=== PATIENT | female | born 1955 | race Caucasian/White ===

== ENCOUNTER → 2017-01-18 | Outpatient (CLI) | payer BC, MEDICARE | LOC: RAD 14:22 | PROVIDERS: ATTEND Internal Medicine Medical Oncology | DX: R07.9 Chest pain, unspecified (principal); R05 Cough | CPT/HCPCS: 71275 ==

== ENCOUNTER → 2017-09-01 | Outpatient (CLI) | payer BC, MEDICARE ==
[2017-09-01 13:26] LABS: HEMATOCRIT 30.6 % (36.0-47.0); HEMOGLOBIN 10.2 g/dL (12.0-15.5); MEAN CORPUSCULAR HEMOGLOBIN 28.8 pg (27.0-33.4); MEAN CORPUSCULAR HGB CONC 33.4 g/dL (32.0-36.0); MEAN CORPUSCULAR VOLUME 86 fl (80-97); RED BLOOD COUNT 3.55 10^6/uL (3.72-5.28); RED CELL DISTRIBUTION WIDTH 13.9 % (11.5-14.0)
[2017-09-01 13:47] LABS: ALANINE AMINOTRANSFERASE 49 U/L (9-52); ALBUMIN 4.1 g/dL (3.5-5.0); ALKALINE PHOSPHATASE 71 U/L (38-126); ANION GAP 13 (5-19); ASPARTATE AMINO TRANSFERASE 52 U/L (14-36); BILIRUBIN,DIRECT 0.4 mg/dL (0.0-0.4); BILIRUBIN,TOTAL 0.4 mg/dL (0.2-1.3); BLOOD UREA NITROGEN 28 mg/dL (7-20); CALCIUM 9.1 mg/dL (8.4-10.2); CARBON DIOXIDE 36 mmol/L (22-30); CHLORIDE 93 mmol/L (98-107); CREATININE RESULT 1.39 mg/dL (0.52-1.25); Direct HDL 52 mg/dL (>40); GLUCOSE 85 mg/dL (75-110); POTASSIUM 4.2 mmol/L (3.6-5.0); SODIUM 141.7 mmol/L (137-145); TOTAL PROTEIN 6.8 g/dL (6.3-8.2); TRIGLYCERIDES 53 mg/dL (<150)
[2017-09-01 13:58] LABS: DIRECT LDL 43 mg/dL (<100)
[2017-09-01 14:03] LABS: ERYTHROCYTE SEDIMENTATION RATE 53 mm/hr (0-30)
== END ==
LOC: OD 12:44
PROVIDERS: ATTEND Nurse Practitioner
DX: E78.2 Mixed hyperlipidemia (principal); I10 Essential (primary) hypertension; I25.10 Atherosclerotic heart disease of native coronary artery without angina pectoris; R06.89 Other abnormalities of breathing; M79.89 Other specified soft tissue disorders; I65.21 Occlusion and stenosis of right carotid artery; I77.1 Stricture of artery; L03.116 Cellulitis of left lower limb; L03.115 Cellulitis of right lower limb
CPT/HCPCS: 36415; 80053; 80061; 85027; 85379; 85652

== ENCOUNTER 2017-09-14 09:07 | Emergency (ER) | payer BC, MEDICARE ==
--- NOTE | 2017-09-14 10:24 | RADIOLOGY REPORT (SQ) ---
EXAM DESCRIPTION: ANKLE LEFT COMPLETE COMPLETED DATE/TIME: 09/14/2017 10:00 am REASON FOR STUDY: lat ankle pain after fall COMPARISON: None. NUMBER OF VIEWS: Three views. TECHNIQUE: AP, lateral, and oblique radiographic images acquired of the left ankle. LIMITATIONS: None. FINDINGS: MINERALIZATION: Normal. BONES: An oblique lucency is identified in the distal fibula suspicious for a nondisplaced fracture l ine. No other evidence for fracture is seen. JOINTS: No effusions. SOFT TISSUES: Soft tissue swelling is identified. OTHER: No other significant finding. IMPRESSION: Oblique lucency in the distal fibula suspicious for nondisplaced fracture line. No othe r evidence for fracture is seen. TECHNICAL DOCUMENTATION: JOB ID: [id number] [employer]- All Rights Reserved
--- NOTE | 2017-09-14 10:36 | ER Document Report ---
HPI - HPI Patient complains to provider of: Left ankle injury Onset: This morning Onset/Duration: Sudden Quality of pain: Sharp Pain Level: 4 Context: Patient states that she was getting up and misstepped injuring her left ankle and then hitting her head on the closet. Patient denies any loss of consciousness. Patient complains of continued left ankle tenderness. Associated Symptoms: Other - Left ankle injury. denies: Headache, Nausea, Vomiting Exacerbated by: Standing, Movement, Walking Relieved by: Denies Similar symptoms previously: No Recently seen / treated by doctor: No - ROS ROS below otherwise negative: Yes Systems Reviewed and Negative: Yes All other systems reviewed and negative - NEURO Neurology: DENIES: Weakness - GASTROINTESTINAL Gastrointestinal: DENIES: Nausea - MUSCULOSKELETAL Musculoskeletal: REPORTS: Extremity pain, Swelling - DERM Skin Problems: None Past Medical History - General Information source: Patient - Social History Smoking Status: Former Smoker Chew tobacco use (# tins/day): No Smoking Education Provided: Yes Frequency of alcohol use: None Drug Abuse: None Occupation: None Lives with: Family Family History: None Patient has suicidal ideation: No Patient has homicidal ideation: No - Past Medical History Cardiac Medical History: Reports: Hx Hypertension Denies: Hx Coronary Artery Disease, Hx Heart Attack Pulmonary Medical History: Denies: Hx Asthma, Hx Bronchitis, Hx COPD, Hx Pneumonia Neurological Medical History: Denies: Hx Cerebrovascular Accident, Hx Seizures Renal/ Medical History: Denies: Hx Peritoneal Dialysis Musculoskeltal Medical History: Reports Hx Arthritis - OSTEOARTHRITIS Past Surgical History: Reports: Hx Cardiac Catheterization - stents x 3, Hx Coronary Stent - x5, Hx Hysterectomy, Hx Orthopedic Surgery - back. Denies: Hx Pacemaker - Immunizations Hx Diphtheria, Pertussis, Tetanus Vaccination: Yes Vertical Provider Document - CONSTITUTIONAL Agree With Documented VS: Yes Exam Limitations: No Limitations General Appearance: WD/WN, No Apparent Distress - INFECTION CONTROL TRAVEL OUTSIDE OF THE [place] IN LAST 30 DAYS: No - HEENT HEENT: Atraumatic, Normocephalic - NECK Neck: Normal Inspection - RESPIRATORY Respiratory: Breath Sounds Normal, No Respiratory Distress O2 Sat by Pulse Oximetry: 100 - BACK Back: Normal Inspection - MUSCULOSKELETAL/EXTREMETIES Musculoskeletal/Extremeties: MAEW, Tender - Left ankle tenderness, left distal left lower extremity tenderness, 1+ edema to left ankle, Edema. negative: Eccymosis - NEURO Level of Consciousness: Awake, Alert, Appropriate Motor/Sensory: No Motor Deficit - DERM Integumentary: Warm, Dry, No Rash Course - Re-evaluation Re-evalutation: 09/14/17 10:36 Patient is on pain medication at home thus the decision was made not to give any additional on top of what she has already had. 09/14/17 10:37 - Vital Signs Vital signs: Temp Pulse Resp BP Pulse Ox 99.2 F 69 19 105/68 100 09/14/17 09:24 09/14/17 09:24 09/14/17 09:24 09/14/17 09:24 09/14/17 09:24 - Diagnostic Test Radiology reviewed: Image reviewed, Reports reviewed Procedures - Immobilization Left Ankle Pre-Proc Neuro Vasc Exam: Normal Immobilizer type: Posterior ankle Performed by: PCT Post-Proc Neuro Vasc Exam: Normal Alignment checked and good: Yes Discharge - Discharge Clinical Impression: Fibula fracture Qualifiers: Encounter type: initial encounter Fibula location: distal Fracture type: closed Fracture morphology: unspecified fracture morphology Laterality: left Qualified Code(s): S82.832A - Other fracture of upper and lower end of left fibula, initial encounter for closed fracture Condition: Stable Disposition: HOME, SELF-CARE Instructions: Use of Crutches ([facility]), Fracture of Distal Fibula ([facility]), Ice & Elevation ([facility]), Splint Precautions ([facility]) Additional Instructions: Return immediately for any new or worsening symptoms Followup with your primary care provider, call tomorrow to make a followup appointment Take your pain medication that you have at home as prescribed Follow-up with orthopedic doctor for further evaluation, call today for an appointment Forms: Smoking Cessation Education Referrals: [facility] ([facility] [Provider Group] - Follow up as needed
[2017-09-14] MEDS ORDERED: ACETAMINOPHEN 325 MG TABLET PO ONE (10:37)
[2017-09-14 10:58] VITALS: BP 92/66
== END 2017-09-14 10:58 | disposition home or self-care (01) ==
LOC: ER 09:07
PROC: 2W3RX1Z Immobilization of Left Lower Leg using Splint (ICD-10-PCS; principal; 2017-09-14)
DX: S82.832A Other fracture of upper and lower end of left fibula, initial encounter for closed fracture (principal); M25.572 Pain in left ankle and joints of left foot; W19.XXXA Unspecified fall, initial encounter; Z87.891 Personal history of nicotine dependence
CPT/HCPCS: 99283

== ENCOUNTER 2018-01-03 09:06 | Day surgery (SDC) | payer BC, MEDICARE ==
[2018-01-03 10:27] LABS: INTERNATIONAL RATION (INR) 0.98; PROTHROMBIN TIME 13.7 SEC (11.4-15.4)
[2018-01-03 10:28] LABS: HEMATOCRIT 34.5 % (36.0-47.0); HEMOGLOBIN 11.6 g/dL (12.0-15.5); MEAN CORPUSCULAR HEMOGLOBIN 28.4 pg (27.0-33.4); MEAN CORPUSCULAR HGB CONC 33.6 g/dL (32.0-36.0); MEAN CORPUSCULAR VOLUME 85 fl (80-97); PARTIAL THROMBOPLASTIN TIME 30.8 SEC (23.5-35.8); PLATELET COUNT 385 10^3/uL (150-450); RED BLOOD COUNT 4.08 10^6/uL (3.72-5.28); RED CELL DISTRIBUTION WIDTH 13.3 % (11.5-14.0); WHITE BLOOD COUNT 8.3 10^3/uL (4.0-10.5)
[2018-01-03 10:40] LABS: BLOOD UREA NITROGEN 21 mg/dL (7-20)
[2018-01-03] MEDS ORDERED: MIDAZOLAM 2 MG/2 ML INJ ONE (11:02)
[2018-01-03] MEDS ORDERED: FENTANYL CITRATE INJ/PF 100 MCG/2 ML AMPUL ONE ×2 (11:03→11:43)
[2018-01-03] MEDS ORDERED: LIDOCAINE 1% INJ-PF (10 MG/ML) 30 ML SDV ONE (11:19)
[2018-01-03 13:58] VITALS: BP 108/67
--- NOTE | 2018-01-03 14:55 | RADIOLOGY REPORT (SQ) ---
EXAM DESCRIPTION: CT BIOPSY BONE MARROW, NEEDLE; CT NEEDLE PLACEMENT COMPLETED DATE/TIME: 01/03/2018 11:49 am REASON FOR STUDY: IRON DEFICIENCY E61.1 IRON DEFICIENCY N18.3 CHRONIC KIDNEY DISEASE, STAGE 3 (MOD ERATE) N28.9 DISORDER OF KIDNEY AND URETER, UNSPECIFIED COMPARISON: CT abdomen pelvis 07/18/2016 TECHNIQUE: CT guided biopsy of the right iliac crest bone marrow performed with conscious sedation. CT Fluoroscopy Time: 2.[address] scanners at this facility use dose modulation, iterative reconstruction, and/or weight based d osing when appropriate to reduce radiation dose to as low as reasonably achievable (ALARA). [facility]: Dose Right [facility]: CareDose [facility]: Dose Right [facility]: Teradose 4D [facility]: [employer] RADIATION DOSE: 34mGy. FINDINGS: The procedure was discussed with the patient and the patient agreed to the procedure. Prio r to the procedure, a time out was performed to verify the patient's identity and planned procedure. IV sedation was administered and physician direction by the registered nurse using 2 milligrams of Ve rsed and 125 micrograms of fentanyl. Physiologic monitoring was provided before, during, and after se dation. The total sedation time was 37 minutes. Documentation face to face time, the performing proceduralist, spent monitoring the patient: [address] scanning was performed to localize the percutaneous site for the biopsy approach. After sterile skin prep and local lidocaine for skin and deep tissue anesthesia, an 11 gauge bone mar row biopsy needle was used to access the posterior right iliac crest. Aspirate and core were obtaine d, submitted to Dr. Wilson's bilingual office assistant for processing. There were no immediate complications. Pathology is pending at the time of dictation. IMPRESSION: CT GUIDED BIOPSY OF THE RIGHT POSTERIOR ILIAC CREST BONE MARROW PERFORMED WITHOUT IMMEDI ATE COMPLICATION. PATHOLOGY PENDING. COMMENT: Quality ID 145: Final reports for procedures using fluoroscopy that document radiation exp osure indices, or exposure time and number of fluorographic images (if radiation exposure indices are not available) Patient medication list reviewed: Yes- Quality ID# [id number]:Eligible professional attests to documenting i n the medical record they obtained, updated, or reviewed the patient's current medications.. TECHNICAL DOCUMENTATION: JOB ID: [id number] Quality ID# [id number]: Final reports with documentation of one or more dose reduction techniques (e.g., Aut omated exposure control, adjustment of the mA and/or kV according to patient size, use of iterative r econstruction technique) 2010 [employer] ([employer]) [facility]- All Rights Reserved Reading location - IP/workstation name: [email or web address]
--- NOTE | 2018-01-03 14:55 | RADIOLOGY REPORT (SQ) ---
EXAM DESCRIPTION: CT BIOPSY BONE MARROW, NEEDLE; CT NEEDLE PLACEMENT COMPLETED DATE/TIME: 01/03/2018 11:49 am REASON FOR STUDY: IRON DEFICIENCY E61.1 IRON DEFICIENCY N18.3 CHRONIC KIDNEY DISEASE, STAGE 3 (MOD ERATE) N28.9 DISORDER OF KIDNEY AND URETER, UNSPECIFIED COMPARISON: CT abdomen pelvis 07/18/2016 TECHNIQUE: CT guided biopsy of the right iliac crest bone marrow performed with conscious sedation. CT Fluoroscopy Time: 2.[address] scanners at this facility use dose modulation, iterative reconstruction, and/or weight based d osing when appropriate to reduce radiation dose to as low as reasonably achievable (ALARA). [facility]: Dose Right [facility]: CareDose [facility]: Dose Right [facility]: Teradose 4D [facility]: [employer] RADIATION DOSE: 34mGy. FINDINGS: The procedure was discussed with the patient and the patient agreed to the procedure. Prio r to the procedure, a time out was performed to verify the patient's identity and planned procedure. IV sedation was administered and physician direction by the registered nurse using 2 milligrams of Ve rsed and 125 micrograms of fentanyl. Physiologic monitoring was provided before, during, and after se dation. The total sedation time was 37 minutes. Documentation face to face time, the performing proceduralist, spent monitoring the patient: [address] scanning was performed to localize the percutaneous site for the biopsy approach. After sterile skin prep and local lidocaine for skin and deep tissue anesthesia, an 11 gauge bone mar row biopsy needle was used to access the posterior right iliac crest. Aspirate and core were obtaine d, submitted to Dr. Wilson's staffing assistant for processing. There were no immediate complications. Pathology is pending at the time of dictation. IMPRESSION: CT GUIDED BIOPSY OF THE RIGHT POSTERIOR ILIAC CREST BONE MARROW PERFORMED WITHOUT IMMEDI ATE COMPLICATION. PATHOLOGY PENDING. COMMENT: Quality ID 145: Final reports for procedures using fluoroscopy that document radiation exp osure indices, or exposure time and number of fluorographic images (if radiation exposure indices are not available) Patient medication list reviewed: Yes- Quality ID# 130:Eligible professional attests to documenting i n the medical record they obtained, updated, or reviewed the patient's current medications.. TECHNICAL DOCUMENTATION: JOB ID: [id number] Quality ID# 436: Final reports with documentation of one or more dose reduction techniques (e.g., Aut omated exposure control, adjustment of the mA and/or kV according to patient size, use of iterative r econstruction technique) 2010 [employer]- All Rights Reserved Reading location - IP/workstation name: [email or web address]
== END 2018-01-03 13:58 | disposition home or self-care (01) ==
LOC: RAD 09:06
PROVIDERS: ATTEND Internal Medicine Medical Oncology
DX: N18.3 Chronic kidney disease, stage 3 (moderate) (principal); E61.1 Iron deficiency; N28.9 Disorder of kidney and ureter, unspecified; Z79.899 Other long term (current) drug therapy
CPT/HCPCS: 36415; 82962; 84520; 82565; 85027; 85610; 85730; 38221; 77012; J2250; J3010; J3490

== ENCOUNTER 2018-12-18 11:22 | Emergency (ER) | payer BC, MEDICARE ==
[2018-12-18 11:34] VITALS: BP 149/80
[2018-12-18] MEDS ORDERED: DEXAMETHASONE SOD PHOS INJ 10 MG/1 ML VIAL IM ONE (11:37)
[2018-12-18] MEDS ORDERED: KETOROLAC TROMETHAMINE INJ/PF 30 MG/1 ML SDV IM ONE (11:37)
--- NOTE | 2018-12-18 11:42 | ER Document Report ---
HPI - HPI Time Seen by Provider: 12/18/18 11:37 Pain Level: 4 Notes: Patient is a 63-year-old female with a history of hypertension and previous back surgery who presents to the emergency department primarily complaining of left lateral ankle pain which she has fractured before. Patient states that on occasion her ankle will roll in some of the shoes that she wears, but does not recall a specific injury. This pain has been ongoing for the last 2 weeks and patient states that she is also had a flareup of her radiculitis down the left lateral thigh into the lower leg over the last couple weeks as well. Patient states that she was also told that she has arthritis to her left hip, but is primarily here for her ankle. Patient states that she would like a steroid injection as well as Toradol as that works well for her. No other concerns or complaints. No history of diabetes. Denies any headache, fever, neck pain, URI, sore throat, chest pain, palpitations, syncope, cough, shortness of breath, wheeze, dyspnea, abdominal pain, nausea/vomiting/diarrhea, urinary retention, dysuria, hematuria, back pain, loss of control of bowel or bladder, numbness, saddle anesthesia, muscle paralysis/weakness, or rash. - ROS Systems Reviewed and Negative: Yes All other systems reviewed and negative Past Medical History - Social History Smoking Status: Former Smoker Family History: None - Past Medical History Cardiac Medical History: Reports: Hx Coronary Artery Disease, Hx Heart Attack - 3 CARDIAC STENTS (2012), Hx Hypertension - ON MEDICATIONS Pulmonary Medical History: Reports: Hx COPD Denies: Hx Asthma, Hx Bronchitis, Hx Pneumonia Neurological Medical History: Denies: Hx Cerebrovascular Accident, Hx Seizures Renal/ Medical History: Denies: Hx Peritoneal Dialysis Musculoskeletal Medical History: Reports Hx Arthritis - OSTEOARTHRITIS Past Surgical History: Reports: Hx Cardiac Catheterization - stents x 3, Hx Coronary Stent - x5, Hx Hysterectomy, Hx Orthopedic Surgery - back. Denies: Hx Pacemaker - Immunizations Hx Diphtheria, Pertussis, Tetanus Vaccination: Yes Hx Pneumococcal Vaccination: 10/16/17 Vertical Provider Document - CONSTITUTIONAL Agree With Documented VS: Yes Notes: PHYSICAL EXAMINATION: GENERAL: Well-appearing, well-nourished and in no acute distress. LUNGS: Breath sounds clear to auscultation bilaterally and equal. No wheezes rales or rhonchi. HEART: Regular rate and rhythm without murmurs, rubs, gallops. ABDOMEN: Soft, nontender, nondistended abdomen. No guarding, no rebound. No masses appreciated. Normal bowel sounds present. No CVA tenderness bilaterally. No pulsatile mass Musculoskeletal: Lt foot/ankle: No obvious ecchymosis, swelling, erythema, warmth, deformity. FROM to passive/active. Strength 5+/5. N/V intact distal. + tenderness to the lateral malleolus. No bony tenderness of the foot. Achilles intact. LE's otherwise b/l: FROM to passive/active. Strength 5+/5. No deficits noted. No bony tenderness of extremities. Frantz negative bilateral Back: FROM to passive/active. Strength 5+/5. No vertebral point tenderness, stepoffs, or deformities. No other bony tenderness, erythema, swelling, or ecchymosis. SLR negative b/l. No SI jt tenderness. No foot drop Extremities: No cyanosis, clubbing, or edema b/l. Peripheral pulses 2+. Capillary refill less than 2 seconds. NEUROLOGICAL: Normal speech, limping gait. Normal sensory, motor exams. Reflexes 2+ b/l. PSYCH: Normal mood, normal affect. SKIN: Warm, Dry, normal turgor, no rashes or lesions noted. - INFECTION CONTROL TRAVEL OUTSIDE OF THE [place] IN LAST 30 DAYS: No Course - Re-evaluation Re-evalutation: 12/18/18 12:30 Patient is an afebrile, well-hydrated, 54-year-old female who presents to the ED with left ankle pain and radiculitis which are both acute on chronic. Vitals are acceptable without any significant tachycardia, tachypnea, or hypoxia. PE is otherwise unremarkable for any neurovascular compromise, obvious tendon/ligament rupture, obvious fracture/dislocation, septic joint. X-ray was unremarkable for any acute pathology. Ankle stirrup provided today. Patient declined any Tylenol or ice. Patient requested Toradol and Decadron which are provided today. Patient is not a diabetic. Patient is nontoxic-appearing. Patient is able to ambulate and weight-bear although she is limping. No other labs or imaging warranted at this time based on H&P. Conservative measures otherwise for symptoms. Recheck with your PCM in 3-5 days. Consider consult orthopedics. Return to the ED with any worsening/concerning symptoms otherwise as reviewed in discharge. Patient is in agreement. - Vital Signs Vital signs: Temp Pulse Resp BP Pulse Ox 98.3 F 70 14 149/80 H 99 12/18/18 11:33 12/18/18 11:33 12/18/18 11:33 12/18/18 11:33 12/18/18 11:33 Discharge - Discharge Clinical Impression: Radiculitis Left ankle pain Qualifiers: Chronicity: acute Qualified Code(s): M25.572 - Pain in left ankle and joints of left foot Condition: Stable Disposition: HOME, SELF-CARE Additional Instructions: Rest, Ice, Compression, Elevation Use splint as directed Tylenol/ibuprofen as needed Light stretches daily Strength exercises as able Moist heat and massage may help F/u with your PCP in 3-5 days for a recheck Consider consult(s) with Orthopedics/physical therapy for ongoing/worsening symptoms Return to the ED with any worsening symptoms and/or development of fever, headache, chest pain, palpitations, syncope, shortness of breath, trouble breathing, abdominal pain, n/v/d, blood in stool/urine, loss of control of bowel/bladder, urinary retention, muscle weakness/paralysis, saddle anesthesia, numbness/tingling, or other worsening symptoms that are concerning to you. Forms: Elevated Blood Pressure Referrals: CADY JIMENEZ FNP [Primary Care Provider] - Follow up as needed [facility] [Provider Group] - Follow up as needed
--- NOTE | 2018-12-18 12:22 | RADIOLOGY REPORT (SQ) ---
EXAM DESCRIPTION: ANKLE LEFT COMPLETE COMPLETED DATE/TIME: 12/18/2018 11:58 am REASON FOR STUDY: left lateral ankle pain COMPARISON: None. NUMBER OF VIEWS: Three views. TECHNIQUE: AP, lateral, and oblique radiographic images acquired of the left ankle. LIMITATIONS: None. FINDINGS: MINERALIZATION: Normal. BONES: No acute fracture or dislocation. No worrisome bone lesions. JOINTS: Small osteophyte projects off of the anterior tibial talar joint. SOFT TISSUES: No soft tissue swelling. No foreign body. OTHER: No other significant finding. IMPRESSION: 1. Mild degenerative changes anterior tibiotalar joint. 2. No acute osseous findings. TECHNICAL DOCUMENTATION: JOB ID: [id number] [employer]- All Rights Reserved Reading location - IP/workstation name: [email or web address]
== END 2018-12-18 12:38 | disposition home or self-care (01) ==
LOC: ER 11:22
DX: M25.572 Pain in left ankle and joints of left foot (principal); M54.10 Radiculopathy, site unspecified; G89.29 Other chronic pain; I10 Essential (primary) hypertension; J44.9 Chronic obstructive pulmonary disease, unspecified; Z87.891 Personal history of nicotine dependence; I25.10 Atherosclerotic heart disease of native coronary artery without angina pectoris; Z95.5 Presence of coronary angioplasty implant and graft
CPT/HCPCS: 99283; 96372; 73610; L1902; J1885; J1100

== ENCOUNTER → 2019-01-14 | Outpatient (CLI) | payer BC, MEDICARE ==
--- NOTE | 2019-01-14 12:53 | RADIOLOGY REPORT (SQ) ---
EXAM DESCRIPTION: L SPINE 2 VIEWS COMPLETED DATE/TIME: 01/14/2019 12:22 pm REASON FOR STUDY: M47.26 OTHER SPONDYLOSIS WITH RADICULOPATHY, LUMBAR REGION M47.26 OTHER SPONDYLOS IS WITH RADICULOPATHY, LUMBAR REGION COMPARISON: None. NUMBER OF VIEWS: Three views. TECHNIQUE: AP, lateral and sacral radiographic images acquired of the lumbar spine. LIMITATIONS: None. FINDINGS: MINERALIZATION: Normal. SEGMENTATION: Normal. No transitional anatomy. ALIGNMENT: Slight scoliosis with concavity toward the right. This could be positional. VERTEBRAE: Maintained height. No fracture or worrisome bone lesion. DISCS: There is disc space narrowing throughout the lumbar spine most marked from L3-L4 through L5-S1 . POSTERIOR ELEMENTS: Pedicles and facets are intact. No pars defect or posterior arch defects. HARDWARE: There are postsurgical changes at L4-L5 with anterior fusion. PARASPINAL SOFT TISSUES: Normal. PELVIS: Intact as visualized. No fractures or worrisome bone lesions. SI joints intact. OTHER: No other significant finding. IMPRESSION: Postsurgical and degenerative changes. No acute findings. TECHNICAL DOCUMENTATION: JOB ID: [id number] [employer]- All Rights Reserved Reading location - IP/workstation name: [email or web address]
--- NOTE | 2019-01-14 12:54 | RADIOLOGY REPORT (SQ) ---
EXAM DESCRIPTION: L SPINE FLEX/EXT ONLY COMPLETED DATE/TIME: 01/14/2019 12:22 pm REASON FOR STUDY: SPONDYLOSIS M47.26 OTHER SPONDYLOSIS WITH RADICULOPATHY, LUMBAR REGION COMPARISON: None. NUMBER OF VIEWS: Two view. TECHNIQUE: Flexion and extension lateral views of lumbar spine were submitted. LIMITATIONS: None. FINDINGS: MINERALIZATION: Normal. SEGMENTATION: Normal. No transitional anatomy. ALIGNMENT: Normal. FLEXION/EXTENSION: No instability. VERTEBRAE: Maintained height. No fracture or worrisome bone lesion. DISCS: Multilevel disc space narrowing. POSTERIOR ELEMENTS: Pedicles and facets are intact. No pars defect or posterior arch defects. HARDWARE: Postsurgical changes at L4-L5 with anterior fusion. OTHER: No other significant finding. IMPRESSION: Multilevel spondylosis. Postsurgical changes at L4-L5. No instability. TECHNICAL DOCUMENTATION: JOB ID: [id number]- All Rights Reserved Reading location - IP/workstation name: [email or web address]
== END ==
LOC: RAD 14:02
PROVIDERS: ATTEND Neurological Surgery
DX: M47.26 Other spondylosis with radiculopathy, lumbar region (principal); M48.062 Spinal stenosis, lumbar region with neurogenic claudication
CPT/HCPCS: 72100; 72120

== ENCOUNTER 2020-06-19 09:51 | Day surgery (SDC) | payer MEDICARE ==
[~2020-06-19 09:51] MED LIST: LACTATED RINGERS 1000 ML IV PRN; LIDOCAINE 0.5% INJ-PF (5 MG/ML) 50 ML SDV SUBCUT PRN
[2020-06-19 11:02] LABS: ABSOLUTE BASOPHILS # (AUTO) 0.1 10^3/uL (0.0-0.2); ABSOLUTE EOSINOPHILS # (AUTO) 0.3 10^3/uL (0.0-0.6); ABSOLUTE LYMPHOCYTES (AUTO) 1.4 10^3/uL (0.5-4.7); ABSOLUTE MONOCYTES (AUTO) 0.5 10^3/uL (0.1-1.4); ABSOLUTE NEUT (AUTO) 3.8 10^3/uL (1.7-8.2); BASOPHILS % (AUTO) 1.2 % (0-2); EOSINOPHILS % (AUTO) 4.9 % (0-6); HEMATOCRIT 34.5 % (36.0-47.0); HEMOGLOBIN 11.6 g/dL (12.0-15.5); LYMPHOCYTES % (AUTO) 23.1 % (13-45); MEAN CORPUSCULAR HEMOGLOBIN 28.9 pg (27.0-33.4); MEAN CORPUSCULAR HGB CONC 33.8 g/dL (32.0-36.0); MEAN CORPUSCULAR VOLUME 86 fl (80-97); MONOCYTES % (AUTO) 8.4 % (3-13); PLATELET COUNT 274 10^3/uL (150-450); RED BLOOD COUNT 4.03 10^6/uL (3.72-5.28); RED CELL DISTRIBUTION WIDTH 13.8 % (11.5-14.0); SEGMENTED NEUTROPHILS % (AUTO) 62.4 % (42-78); TOTAL CELLS COUNTED % (AUTO) 100 %
[2020-06-19 11:23] LABS: ALBUMIN 4.5 g/dL (3.5-5.0); ALKALINE PHOSPHATASE 55 U/L (38-126); ASPARTATE AMINO TRANSFERASE 27 U/L (14-36); BILIRUBIN,DIRECT 0.4 mg/dL (0.0-0.4); BILIRUBIN,TOTAL 0.6 mg/dL (0.2-1.3); TOTAL PROTEIN 7.2 g/dL (6.3-8.2)
[2020-06-19] MEDS ORDERED: EPINEPHRINE INJ 1 MG/10 ML DISP.SYRIN ONE (14:13)
[2020-06-19] MEDS ORDERED: MIDAZOLAM 2 MG/2 ML INJ ONE (14:27)
[2020-06-19] MEDS ORDERED: ONDANSETRON HCL INJ/PF 4 MG/2 ML SDV ONE (14:27)
[2020-06-19] MEDS ORDERED: PROPOFOL INJ 200 MG/20 ML VIAL IV ONE (14:27)
[2020-06-19] MEDS ORDERED: FENTANYL CITRATE INJ/PF 100 MCG/2 ML AMPUL ONE ×2 (14:27→15:43)
[2020-06-19] MEDS ORDERED: LIDOCAINE 2% INJ-PF (20 MG/ML) 10 ML AMPUL ONE (14:27)
[2020-06-19] MEDS ORDERED: DIPHENHYDRAMINE HCL 50 MG/ML VIAL IV PRN (15:20)
[2020-06-19] MEDS ORDERED: ONDANSETRON HCL INJ/PF 4 MG/2 ML SDV IV PRN (15:20)
[2020-06-19] MEDS ORDERED: FENTANYL CITRATE INJ/PF 100 MCG/2 ML AMPUL IV PRN ×3 (15:20)
[2020-06-19] MEDS ORDERED: MEPERIDINE HCL/PF INJ 25 MG/1 ML DISP.SYRIN IV PRN (15:20)
[2020-06-19] MEDS ORDERED: PROMETHAZINE HCL INJ 25 MG/1 ML VIAL IV PRN ×2 (15:20)
--- NOTE | 2020-06-19 15:30 | Operative Report ---
Operative Report DATE OF SURGERY: 06/19/20 Operative Report: Pre-op diagnosis: Recurrent abdominal pain and choledocholithiasis noted on endoscopic ultrasound Post-op diagnosis: Common bile duct sludge Surgery: ERCP with sphincterotomy and balloon sludge extraction Medications: As per anesthesia Tissue removed: None Procedure: After informed consent obtained from patient, patient was placed under general anesthesia. The ERCP endoscope was then inserted into the esophagus blindly and advanced into the stomach. The duodenum was entered and the ampulla was identified. Using the triple-lumen sphincterotomy catheter the common bile duct was freely cannulated. A cholangiogram was obtained . A good sized sphincterotomy was then performed using the endocut mode. The catheter was removed over the guidewire before a 9-12 mm balloon catheter was inserted. The balloon was inflated to 12 mm in the proximal common bile duct and pulled down the duct. The duct was swept two more times. A balloon occlusion cholangiogram was normal. Patient tolerated procedure well. Findings Common bile duct: Small amount of sludge was extracted Intrahepatic ducts: Normal Pancreatic duct: Not cannulated Plan: Follow-up as outpatient OPERATION: .
--- NOTE | 2020-06-19 18:21 | RADIOLOGY REPORT (SQ) ---
EXAM DESCRIPTION: ENDO CATH BILI/PANCREATIC IMAGES COMPLETED DATE/TIME: 06/19/2020 4:17 pm REASON FOR STUDY: ERCP K80.30 CALCULUS OF BILE DUCT W CHOLANGITIS, UNSP, W/O OBSTRU Z79.01 LONG TE RM (CURRENT) USE OF ANTICOAGULANTS COMPARISON: None. FLUOROSCOPY TIME: 2.2 minutes. 17 images saved to PACS. TECHNIQUE: Intra-operative images acquired during surgical procedure to evaluate progress. NUMBER OF IMAGES: 17 images. LIMITATIONS: None. FINDINGS: Images acquired during ERCP. IMPRESSION: IMAGE(S) OBTAINED DURING PROCEDURE. COMMENT: Quality ID 145: Final reports for procedures using fluoroscopy that document radiation exp osure indices, or exposure time and number of fluorographic images (if radiation exposure indices are not available) Please consult full operative report of the attending physician for description of the procedure. TECHNICAL DOCUMENTATION: JOB ID: [id number] 2010 [employer]- All Rights Reserved Reading location - IP/workstation name: [email or web address]
[2020-06-19 18:51] VITALS: BP 134/64
== END 2020-06-19 17:22 | disposition home or self-care (01) ==
LOC: OROUT 09:51
PROVIDERS: ATTEND Internal Medicine Gastroenterology
DX: K83.8 Other specified diseases of biliary tract (principal); R94.5 Abnormal results of liver function studies; R10.9 Unspecified abdominal pain; E03.9 Hypothyroidism, unspecified; K76.0 Fatty (change of) liver, not elsewhere classified; I12.9 Hypertensive chronic kidney disease with stage 1 through stage 4 chronic kidney disease, or unspecified chronic kidney disease; N18.9 Chronic kidney disease, unspecified; K21.9 Gastro-esophageal reflux disease without esophagitis; E78.00 Pure hypercholesterolemia, unspecified; J44.9 Chronic obstructive pulmonary disease, unspecified; I73.9 Peripheral vascular disease, unspecified; I25.2 Old myocardial infarction; Z79.899 Other long term (current) drug therapy; Z88.8 Allergy status to other drugs, medicaments and biological substances; Z03.818 Encounter for observation for suspected exposure to other biological agents ruled out
CPT/HCPCS: 43277; 43262; 36415; 83690; 85025; 80076; 74330; 00732; Q9967; U0003; J2250; J3010; J2405; J2704; J3490; C9803; 732; 87635; J0171

== ENCOUNTER → 2020-08-21 | Outpatient (CLI) | payer MEDICARE ==
--- NOTE | 2020-08-21 10:24 | RADIOLOGY REPORT (SQ) ---
EXAM DESCRIPTION: NM HIDA SCAN IMAGES COMPLETED DATE/TIME: 08/21/2020 9:13 am REASON FOR STUDY: R11.2 NAUSEA WITH VOMITING, UNSPECIFIED R11.2 NAUSEA WITH VOMITING, UNSPECIFIED COMPARISON: None. RADIONUCLIDE AND DOSE: DOSAGE RADIONUCLIDE: 5.36 millicuries Tc99m Mebrofenin. DOSAGE MORPHINE: Not required. The route of agent administration: Intravenous TECHNIQUE: Serial imaging right upper quadrant up to 60 minutes following injection of radionuclide. Patient imaged AP and Right Lateral. LIMITATIONS: None. FINDINGS: LIVER: Normal visualization without areas of photopenia. INTRA-HEPATIC BILE DUCTS: Temporal visualization normal. No dilatation. COMMON BILE DUCT: Normal without dilatation or delayed visualization. GALLBLADDER: Normal visualization. OTHER: No other significant finding. IMPRESSION: NORMAL STUDY WITHOUT CYSTIC OR COMMON DUCT OBSTRUCTION. TECHNICAL DOCUMENTATION: JOB ID: [id number] 2010 [employer]- All Rights Reserved Reading location - IP/workstation name: [email or web address]
== END ==
LOC: RAD 07:27
PROVIDERS: ATTEND Internal Medicine Gastroenterology
DX: R11.2 Nausea with vomiting, unspecified (principal)
CPT/HCPCS: 78226; A9537; Q9969

== ENCOUNTER → 2020-09-09 | Outpatient (CLI) | payer MEDICARE ==
--- NOTE | 2020-09-09 12:53 | RADIOLOGY REPORT (SQ) ---
EXAM DESCRIPTION: NM GASTRIC EMPTYING STUDY IMAGES COMPLETED DATE/TIME: 09/09/2020 12:30 pm REASON FOR STUDY: (R11.2)NAUSEA WITH VOMITING, UNSPECIFIED R11.2 NAUSEA WITH VOMITING, UNSPECIFIED COMPARISON: None. RADIONUCLIDE AND DOSE: 2.16 millicuries Tc-99m Sulfur Colloid. Egg salad sandwich The route of agent administration: Oral. TECHNIQUE: 1 minute serial static imaging performed at time of meal, 1 hour, 2 hours, 3 hours, and 4 hours as needed. Once stomach reaches 90% emptying, the test is complete. Image intensity values pl otted with respect to time with linear regression algorithm. LIMITATIONS: None. FINDINGS: Patient was observed for 4 hours. Immediate post meal serves as baseline. Gastric emptying at 60 minutes was 24%. Gastric emptying at 90 minutes was 39% Gastric emptying at 120 minutes was 52%. Gastric emptying at 240 minutes was 84%. Normal values: 60 minutes: 30-90% retained. If less than 30%, abnormally rapid emptying. If greater than 90%, delaye d gastric emptying. 120 minutes: <60% retained. If greater than 60%, delayed gastric emptying. 240 minutes: <10% retained. If greater than 10%, delayed gastric emptying. IMPRESSION: Delayed gastric emptying. TECHNICAL DOCUMENTATION: JOB ID: [id number] 2010 [employer]- All Rights Reserved Reading location - IP/workstation name: [email or web address]
== END ==
LOC: RAD 07:43
PROVIDERS: ATTEND Internal Medicine Gastroenterology
DX: R11.2 Nausea with vomiting, unspecified (principal)
CPT/HCPCS: 78264; A9541